=== PATIENT | female | born 1965 | race Caucasian/White ===

== ENCOUNTER 2017-01-05 16:02 | Emergency (ER) | payer OTHER ==
[2017-01-05 16:26] VITALS: PULSE 94; O2SAT 99
[2017-01-05] MEDS ORDERED: TYLENOL 325 MG PO ONE (16:28)
--- NOTE | 2017-01-05 16:34 | ERPHSYRPT ---
- History of Present Illness Time Seen by Provider: 01/05/17 16:25 Source: patient Patient Subjective Stated Complaint: pt states on 01/03/17 she was moving a bag of salt at work and injured her left elbow. pt states pain is worse upon extension of her left elbow. Triage Nursing Assessment: pt pink, warm, dry. no deformity noted to left elbow. no swelling noted. radial pulse strong. Physician History: CC: left elbow injury Hx: 51 y/o diabetic works at [employer] and injured left elbow Wed (2 days ago) while lifting a box of salt bags. She felt a pop. Pain not better with motrin. No other injury. No N/T/W. Quality: constant Extremities Pain Location: elbow: left Allergies/Adverse Reactions: Iodinated Contrast- Oral and IV Dye [Iodinated Contrast Media - IV Dye] Allergy (Verified 01/05/17 16:26) Penicillins Allergy (Verified 01/05/17 16:26) Home Medications: Armodafinil [Nuvigil] 200 mg PO DAILY 01/05/17 [History] Atenolol 50 mg PO DAILY PRN PRN 01/05/17 [History] Metformin HCl 1,000 mg PO BID 01/05/17 [History] Hx Tetanus, Diphtheria Vaccination/Date Given: Yes (up to date) Hx Influenza Vaccination/Date Given: No Hx Pneumococcal Vaccination/Date Given: No Immunizations Up to Date: Yes - Review of Systems Constitutional: No Symptoms Musculoskeletal: Injury, Joint Pain (left elbow), No Back Pain, No Neck Pain Neurological: No Focal Weakness, No Parasthesia - Past Medical History Pertinent Past Medical History: Yes Neurological History: Migraines Cardiac History: Hypertension Endocrine Medical History: Diabetes Type II Musculoskeletal History: Other GI Medical History: Diverticulosis Other Medical History: narcalepsy - Past Surgical History Past Surgical History: Yes Gastrointestinal: Appendectomy, Cholecystectomy Female Surgical History: Section, Hysterectomy - Social History Smoking Status: Never smoker Exposure to second hand smoke: Yes Drug Use: none Patient Lives Alone: No - Nursing Vital Signs Nursing Vital Signs: Initial Vital Signs Temperature 98.1 F 01/05/17 16:21 Pulse Rate 94 H 01/05/17 16:21 Respiratory Rate 18 01/05/17 16:21 Blood Pressure 144/95 01/05/17 16:21 O2 Sat by Pulse Oximetry 99 01/05/17 16:21 Pain Scale Pain Intensity 0 - Physical Exam General Appearance: alert Eyes, Ears, Nose, Throat Exam: moist mucous membranes Neck Exam: non-tender, supple Cardiovascular/Respiratory Exam: regular rate/rhythm Neuro/Tendon Exam: normal sensation, normal motor functions Mental Status Exam: alert, oriented x 3, cooperative Skin Exam: warm, dry, No rash SpO2 Interpretation: normal SpO2: 99 Oxygen Delivery: Room Air Comments: Left elbow some tender at the radial head area and with suppination. No swelling. No wrist, hand or shoulder tenderness. Neurovascular intact. - Course Nursing assessment & vital signs reviewed: Yes - Radiology Exams left elbow X-ray Interpretation: Reviewed by me, No Fracture Ordered Tests: Active Orders 24 hr Category Date Time Status Silvestre Bandage Application [facility] STAT Care 01/05/17 16:28 Active Cold Application STAT Care 01/05/17 16:28 Active Sling Application STAT Care 01/05/17 16:28 Active ELBOW (MINIMUM 3 VIEWS) Stat Exams 01/05/17 16:28 Taken Medication Summary Discontinued Medications Generic Name Dose Route Start Last Admin Trade Name Mark PRN Reason Stop Dose Admin Acetaminophen 650 mg 01/05/17 16:28 01/05/17 16:48 Tylenol 325 Mg PO 01/05/17 16:29 650 mg STAT ONE Administration Acetaminophen Confirm 01/05/17 16:47 Tylenol 325 Mg Administered 01/05/17 16:48 Dose 650 mg .ROUTE .STK-MED ONE - Progress Progress Note: 01/05/17 17:05 Prelim xray appears neg. Will use silvestre, sling, codiene, and follow up. She will have light duty with no use of left arm until follow up Sunday. Counseled pt/family regarding: diagnosis, need for follow-up, rad results - Departure Time of Disposition: 17:06 Departure Disposition: Home Clinical Impression: Sprain of left elbow Qualifiers: Encounter type: initial encounter Qualified Code(s): S53.402A - Unspecified sprain of left elbow, initial encounter Condition: Stable Critical Care Time: No Referrals: MARIA T FORD [Primary Care Provider] - Instructions: Elbow Sprain Additional Instructions: SPRAINS/STRAINS/CONTUSIONS 1. Rest the affected area as much as possible for the next few days. 2. Apply ice to the affected area for 20-30 minutes at a time, several times a day. 3. If you receive an elastic wrap, wear it only while awake for comfort and support. Re-wrap the elastic wrap if it feels too tight or too loose. 4. If swelling is present, elevate the affected part above the level of the heart for at least 2 to 3 days. 5. Use splints, slings, or crutches as instructed. 6. Watch for severe swelling, coldness, numbness, and discoloration of the fingers and toes. See your family physician or return to the emergency department if any of these are noted. Rx codiene if needed. Silvestre, cold pack, sling. [facility]. Light duty work with no use of left arm. Prescriptions: Codeine Phosphate/APAP #3 [Tylenol #3 Tablet] 1 tab PO Q4-6HPRN PRN #10 tablet PRN Reason: Pain
[2017-01-05] MEDS ORDERED: TYLENOL 325 MG ONE (16:47)
[2017-01-05 17:08] VITALS: BP 123/66
--- NOTE | 2017-01-05 17:12 | XRAY ---
Indication: Pain. Comparison: None 3 views of the left elbow obtained. No bony, articular, or soft tissue abnormalities.
== END 2017-01-05 17:23 | disposition home or self-care (01) ==
LOC: ED 16:02
DX: S53.402A Unspecified sprain of left elbow, initial encounter (principal); X50.0XXA Overexertion from strenuous movement or load, initial encounter; Y92.512 Supermarket, store or market as the place of occurrence of the external cause
CPT/HCPCS: 73080; 99283; A9270-GY

== ENCOUNTER 2017-02-24 12:25 | Emergency (ER) | payer OTHER ==
[2017-02-24 12:45] VITALS: O2SAT 99
--- NOTE | 2017-02-24 13:09 | ERPHSYRPT ---
- History of Present Illness Time Seen by Provider: 02/24/17 13:02 Source: patient Patient Subjective Stated Complaint: pt was standing up from her desk at work today approx 1130 when she tripped over a heavy box, pt reports she jammed her right arm into the wall as she fell. pt reports landing on knees. states " my arm went completely backwards" pt denies striking her head, denies any LOC. Triage Nursing Assessment: pt is aox3, pupils perrl, resps easy and non labored , radial pulses strong and equal, cap refill < 3 secs, pt rom limited to right upper extrem, cannot raise above shoulder level. sensation to digits intact. pt reports pain with movement of the right upper extrem at the bicep that radiates to the shoulder. minimal pain at rest. Physician History: CC: right arm injury Hx: 52 y/o patient works at [employer] in [employer]. She was at her office and tripped on a box and fell against a wall hurting her right upper arm and shoulder. No neck or back pain. No N/T/W. No other injuries. Work sent her here for evaluation. Pain is moderate and worse with movement. Occurred: just prior to arrival (11:30 AM ) Allergies/Adverse Reactions: Iodinated Contrast- Oral and IV Dye [Iodinated Contrast Media - IV Dye] Allergy (Verified 02/24/17 12:45) Penicillins Allergy (Verified 02/24/17 12:45) Home Medications: Armodafinil [Nuvigil] 200 mg PO DAILY 01/05/17 [History] Atenolol 50 mg PO DAILY PRN PRN 01/05/17 [History] Metformin HCl 1,000 mg PO BID 01/05/17 [History] Hx Tetanus, Diphtheria Vaccination/Date Given: Yes Hx Influenza Vaccination/Date Given: No Hx Pneumococcal Vaccination/Date Given: No Immunizations Up to Date: Yes - Review of Systems Constitutional: No Symptoms Respiratory: No Dyspnea Musculoskeletal: Fall, Injury (right shoulder and upper arm), No Back Pain, No Neck Pain, No Deformity Neurological: No Focal Weakness, No Headache, No Parasthesia - Past Medical History Pertinent Past Medical History: Yes Neurological History: Migraines Cardiac History: Hypertension Endocrine Medical History: Diabetes Type II Musculoskeletal History: Other GI Medical History: Diverticulosis Other Medical History: narcolepsy - Past Surgical History Past Surgical History: Yes Gastrointestinal: Appendectomy, Cholecystectomy Female Surgical History: Section, Hysterectomy - Social History Smoking Status: Never smoker Exposure to second hand smoke: Yes Drug Use: none Patient Lives Alone: No - Female History Hx Last Menstrual Period: hyst Hx Now: No - Nursing Vital Signs Nursing Vital Signs: Initial Vital Signs Temperature 98.5 F 02/24/17 12:35 Pulse Rate 99 H 02/24/17 12:35 Respiratory Rate 20 02/24/17 12:35 Blood Pressure 131/74 02/24/17 12:35 O2 Sat by Pulse Oximetry 99 02/24/17 12:35 Pain Scale Pain Intensity 4 - Physical Exam General Appearance: alert, obese, other (pleasant lady) Eyes, Ears, Nose, Throat Exam: moist mucous membranes Neck Exam: normal inspection, non-tender, supple, No tenderness midline Cardiovascular/Respiratory Exam: chest non-tender, normal breath sounds, regular rate/rhythm Back Exam: normal inspection, No vertebral tenderness Neuro/Tendon Exam: normal sensation, normal motor functions Mental Status Exam: alert, oriented x 3, cooperative Skin Exam: warm, No rash SpO2 Interpretation: normal SpO2: 99 Oxygen Delivery: Room Air Comments: right humerus tenderness, able to touch right hand to left shoulder, pain with ROM, no wrist or hand tenderness. Skin intact. - Course Nursing assessment & vital signs reviewed: Yes Ordered Tests: Active Orders 24 hr Category Date Time Status Cold Application STAT Care 02/24/17 13:05 Active Sling Application STAT Care 02/24/17 13:05 Active HUMERUS Stat Exams 02/24/17 13:05 Taken SHOULDER Stat Exams 02/24/17 13:05 Taken - Progress Progress Note: 02/24/17 13:43 Pt declines meds here. Sling applied. She has an avulsion fracture proximal humerus. She will follow up with workers comp family or orthopedics doctor. Instr given. Rx norco. Counseled pt/family regarding: diagnosis, need for follow-up, rad results - Departure Time of Disposition: 13:44 Departure Disposition: Home Clinical Impression: avulsion fracture humerus proximal right, Sprain of right shoulder Condition: Stable Critical Care Time: No Referrals: MARIA T FORD [Primary Care Provider] - Instructions: Shoulder Sprain, Avulsion Fracture, Use a Sling Additional Instructions: SPRAINS/STRAINS/CONTUSIONS 1. Rest the affected area as much as possible for the next few days. 2. Apply ice to the affected area for 20-30 minutes at a time, several times a day. 3. If you receive an elastic wrap, wear it only while awake for comfort and support. Re-wrap the elastic wrap if it feels too tight or too loose. 4. If swelling is present, elevate the affected part above the level of the heart for at least 2 to 3 days. 5. Use splints, slings, or crutches as instructed. 6. Watch for severe swelling, coldness, numbness, and discoloration of the fingers and toes. See your family physician or return to the emergency department if any of these are noted. Right arm sling. Ice packs off and on. Off work today and then light duty work with no use of right arm. Follow up with workers comp doctor/[facility] Sunday. Rx norco- no driving or operating machinery. Prescriptions: Hydrocodone Bit/Acetaminophen [[place] 5-325 Tablet] 1 each PO Q6H PRN PRN #15 tablet MDD 4 PRN Reason: Pain
[2017-02-24 14:20] VITALS: BP 145/62; PULSE 89
--- NOTE | 2017-02-24 23:00 | XRAY ---
Indication: Pain following fall. Comparison: None 2 views of the right humerus interpreted with right shoulder exam of the same day negative for acute fracture, dislocation, or suspicious bony lesions. Incidental benign-appearing subcentimeter well-circumscribed ossification in the axilla.
--- NOTE | 2017-02-24 23:00 | XRAY ---
Indication: Pain following fall. Comparison: None 3 views of the right shoulder demonstrates benign-appearing subcentimeter well-circumscribed ossification in the axilla. No acute fracture, dislocation, or suspicious bony lesions.
== END 2017-02-24 14:20 | disposition home or self-care (01) ==
LOC: ED 12:25
DX: S42.201A Unspecified fracture of upper end of right humerus, initial encounter for closed fracture (principal); S43.401A Unspecified sprain of right shoulder joint, initial encounter; W22.8XXA Striking against or struck by other objects, initial encounter; Y99.0 Civilian activity done for income or pay
CPT/HCPCS: 73030; 73060; 99283

== ENCOUNTER 2020-04-05 10:35 | Observation (INO) | payer BC ==
[2020-04-05 11:01] LABS: Hematocrit 42.3 % (35-47); Hemoglobin 13.5 gm/dl (12.0-16.0); Mean Cell Volume 88.5 fl (78-100); Mean Corpuscular Hemoglobin 28.2 pg (26-32); Mean Corpuscular Hgb Concent. 31.9 g/dl (32-36); Mean Platelet Volume 10.4 fl (7.5-11.0); Platelet Count 381 K/mm3 (150-450); Red Blood Count 4.78 M/mm3 (4.1-5.4); Red Cell Distribution Width 12.6 % (11.5-14.0); White Blood Count 10.4 K/mm3 (4.0-10.5)
--- NOTE | 2020-04-05 11:05 | XRAY ---
Indication: Chest pain. Comparison: March 29, 2018. Portable chest less inflated and remains clear. Heart is not enlarged. Bony thorax intact. Impression: Continued nonacute chest.
[2020-04-05 11:07] LABS: PROTIME 11.3 SECONDS (9.95-12.35)
[2020-04-05] MEDS ORDERED: Nitrostat 0.4 MG (ED) SL ONE ×4 (11:09→11:20)
[2020-04-05] MEDS ORDERED: BABY ASPIRIN 81 MG CHEW PO ONE (11:09)
[2020-04-05 11:10] LABS: PTT 31.5 SECONDS (25.3-37.0)
[2020-04-05] MEDS ORDERED: BABY ASPIRIN 81 MG CHEW ONE (11:10)
[2020-04-05 11:19] LABS: ALKALINE PHOSPHATASE 157 U/L (38-126); ANION GAP 13.3 MEQ/L (5-15); BLOOD UREA NITROGEN 20 mg/dL (7-17); CHLORIDE 101 mmol/L (98-107); Calcium 10.2 mg/dL (8.4-10.2); Carbon Dioxide 25 mmol/L (22-30); Creatinine 1 0.69 mg/dL (0.52-1.04); EST GLOMERULAR FILTRATION RATE > 60.0 ML/MIN; Glucose 262 mg/dL (74-106); NT PRO BNP 186 pg/mL (0-900); Potassium 4.4 mmol/L (3.5-5.1); SGOT/AST 32 U/L (14-36); SGPT/ALT 24 U/L (0-35); SODIUM 136 mmol/L (137-145); Total Protein 7.1 g/dL (6.3-8.2)
--- NOTE | 2020-04-05 11:26 | ERPHSYRPT ---
- History of Present Illness Historian: patient Patient Subjective Stated Complaint: Chest pain Triage Nursing Assessment: Patient ambulated back to ED and transferred self to bed. Patient A+O X3. Patient's skin pink, warm and dry. Patient complains of chest pain on and off since Sunday. Patien went to follow up appointment today and was still having chest pain. Patient complains of constant aching sharp pain in the chest that goes down right arm 5/10. Lungs clear a/p martinez. No edema noted. Heart tones audible. Physician History: 55 yo wf w mid-sternal chest pain w radiation to back and RUE x2days. Pain is 6/10 but has been up to 09/28. It is described as pressure and nothing makes better or worse. She has had dyspnea/N/diaphoresis wo vomiting. Pt was admitted at [facility] from 03/31 to 04/03 at [facility] for chest pain/CVA ro. She denies cardiac Hx but has HTN/DM/Hyperlipidemia/FH CAD. She does not smoke. Timing/Duration: other (2 days) Activities at Onset: rest Quality: pressure Location: substernal Chest Pain Radiation: arm, back Severity of Pain-Max: moderate Severity of Pain-Current: moderate Modifying Factors: Improves With: nothing Associated Symptoms: nausea, shortness of breath, diaphoresis, No vomiting Prior Chest Pain/Cardiac Workup: recent hospitalization Nitro Today/Relief: no nitro taken today Aspirin Treatment Today: no aspirin today Allergies/Adverse Reactions: Iodinated Contrast Media [Iodinated Contrast Media - IV Dye] Allergy (Verified 02/24/17 12:45) Penicillins Allergy (Verified 02/24/17 12:45) topiramate [From Topamax] Allergy (Verified 04/05/20 10:40) Hives, N/V Home Medications: Metformin HCl 1,000 mg PO BID 01/05/17 [History] Acetaminophen 325 mg [Tylenol 325 mg] 650 mg PO Q4H PRN PRN 04/05/20 [History] Albuterol Sulfate [Proair Hfa] 2 puff IH Q4HPRN PRN 04/05/20 [History] Allopurinol 300 mg [Zyloprim 300 mg] 300 mg PO DAILY 04/05/20 [History] Amitriptyline HCl 10 mg [Elavil 10 mg] 10 mg PO HS 04/05/20 [History] Ergocalciferol (Vitamin D2) [Vitamin D2] 50,000 units PO UD 04/05/20 [History] Insulin Detemir [Levemir] 18 units SQ BID 04/05/20 [History] Insulin Lispro [Humalog] 8 unit SQ BREAKFAST 04/05/20 [History] Insulin Lispro [Humalog] 12 unit SQ DINNER 04/05/20 [History] Insulin Lispro [Humalog] 12 unit SQ LUNCH 04/05/20 [History] Insulin Lispro [Humalog] 100 unit SQ UD 04/05/20 [History] Magnesium Oxide 400 mg [Mag-Ox 400] 400 mg PO DAILY 04/05/20 [History] Modafinil [Provigil] 400 mg PO QAM 04/05/20 [History] Pravastatin Sodium 40 mg PO DAILY 04/05/20 [History] Pregabalin 150 mg PO BID 04/05/20 [History] Propranolol HCl 10 mg PO TID 04/05/20 [History] Ropinirole 2Mg [Requip 2Mg Tab] 4 mg PO HS 04/05/20 [History] SUMAtriptan succinate [Imitrex 50 mg] 100 mg PO UD 04/05/20 [History] Scopolamine 1.5 mg Patch [Transderm Scop 1.5MG Patch] 1 patch TOP UD 04/05/20 [History] Hx Tetanus, Diphtheria Vaccination/Date Given: Yes Hx Influenza Vaccination/Date Given: No Hx Pneumococcal Vaccination/Date Given: No Immunizations Up to Date: Yes Travel Risk - International Travel Have you traveled outside of the country in past 3 weeks: No - Coronavirus Screening Are you exhibiting any of the following symptoms?: No Close contact with a COVID-19 positive Pt in past 14-21 Days: No - Review of Systems Constitutional: No Symptoms Eyes: No Symptoms Ears, Nose, & Throat: No Symptoms Respiratory: No Symptoms, Dyspnea Cardiac: Chest Pain Abdominal/Gastrointestinal: No Symptoms, Nausea Genitourinary Symptoms: No Symptoms Musculoskeletal: No Symptoms Skin: No Symptoms Neurological: No Symptoms Psychological: No Symptoms Endocrine: No Symptoms Hematologic/Lymphatic: No Symptoms Immunological/Allergic: No Symptoms - Past Medical History Pertinent Past Medical History: Yes Neurological History: Migraines Cardiac History: Hypertension Respiratory History: No Pertinent History Endocrine Medical History: Diabetes Type II Musculoskeletal History: Other GI Medical History: Diverticulosis Other Medical History: HX HTN, MIGRAINES, L KNEE PN, L LATERAL EPICONDYLITIS - Past Surgical History Past Surgical History: Yes Gastrointestinal: Appendectomy, Cholecystectomy Female Surgical History: Section, Hysterectomy - Social History Smoking Status: Never smoker Exposure to second hand smoke: Yes Drug Use: none Patient Lives Alone: No - Female History Hx Last Menstrual Period: hysterctomy Hx Now: No - Nursing Vital Signs Nursing Vital Signs: Initial Vital Signs Temperature 97.2 F 04/05/20 10:45 Pulse Rate 93 H 04/05/20 10:45 Respiratory Rate 14 04/05/20 10:45 Blood Pressure 157/90 04/05/20 10:45 O2 Sat by Pulse Oximetry 100 04/05/20 10:45 Pain Scale Pain Intensity 4 - Physical Exam General Appearance: no apparent distress Eye Exam: PERRL/EOMI, eyes nml inspection Ears, Nose, Throat Exam: normal ENT inspection, TMs normal, pharynx normal, moist mucous membranes Neck Exam: normal inspection, non-tender, supple, full range of motion, No meningismus, No mass, No Brudzinski, No Kernig's Respiratory Exam: normal breath sounds, lungs clear, airway intact, No respiratory distress Cardiovascular Exam: regular rate/rhythm, normal heart sounds, normal peripheral pulses, No murmur Gastrointestinal/Abdomen Exam: soft, normal bowel sounds, No tenderness Pelvic Exam: not done Back Exam: normal inspection, normal range of motion Extremity Exam: normal inspection, normal range of motion Neurologic Exam: alert, oriented x 3, cooperative, 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, normal mood/affect, sensation nml, No motor deficits, No sensory deficit Skin Exam: normal color, warm, dry Lymphatic Exam: No adenopathy SpO2 Interpretation: normal SpO2: 98 O2 Delivery: Room Air - Course Nursing assessment & vital signs reviewed: Yes EKG Interpreted by Me: RATE (NSR/R82/Normal QT-QTc/Qwave 3-AVF/Poor R wave progression) - Radiology Exams Chest X-ray Interpretation: Discussed w/ radiologist (Nothing acute) Ordered Tests: Active Orders 24 hr Category Date Time Status EKG-ER Only STAT Care 04/05/20 10:36 Completed IV Insertion STAT Care 04/05/20 11:15 Completed Heart-Healthy Diet Diet 04/05/20 Dinner Active CHEST 1 VIEW (PORTABLE) Stat Exams 04/05/20 10:37 Completed CBC W DIFF Stat Lab 04/05/20 10:36 Completed CMP Stat Lab 04/05/20 10:36 Completed D-DIMER QUANTITATIVE Stat Lab 04/05/20 10:45 Completed LIPID PROFILE AM.LAB Lab 04/06/20 04:00 Ordered Manual Differential NC Stat Lab 04/05/20 10:36 Completed NT PRO BNP Stat Lab 04/05/20 10:36 Completed PROTIME WITH INR Stat Lab 04/05/20 10:36 Completed PTT Stat Lab 04/05/20 10:36 Completed TROPONIN Q3H Lab 04/05/20 10:45 Completed TROPONIN Q3H Lab 04/05/20 12:50 Completed TROPONIN Q3H Lab 04/05/20 16:45 Ordered TROPONIN Q3H Lab 04/05/20 19:45 Ordered TROPONIN Q3H Lab 04/05/20 22:45 Ordered Transfer Order Routine Transfer 04/05/20 Completed Medication Summary Generic Name Dose Route Start Last Admin Trade Name Freq PRN Reason Stop Dose Admin Acetaminophen 650 mg 04/05/20 13:46 Tylenol 325 Mg PO 05/05/20 13:45 Q4H PRN PRN PAIN AND/OR FEVER Al Hydrox/Mg Hydrox/Simethicone 30 ml 04/05/20 13:46 Maalox Es 30 Ml Unit Dose PO 05/05/20 13:45 Q4H PRN PRN INDIGESTION Aspirin 325 mg 04/06/20 10:00 Ecotrin 325 Mg PO 05/06/20 09:59 DAILY CHRISTINA Enoxaparin Sodium 40 mg 04/05/20 15:00 Enoxaparin Sodium SQ 05/05/20 14:59 DAILY CHRISTINA Insulin Human Lispro 0 unit 04/05/20 13:46 Humalog SQ 05/05/20 13:45 UD PRN HYPERGLYCEMIA Magnesium Hydroxide 30 - 60 ml 04/05/20 13:46 Milk Of Magnesia 30 Ml PO 05/05/20 13:45 QDP PRN CONSTIPATION Morphine Sulfate 2 mg 04/05/20 13:46 Morphine Sulfate 2 Mg Inj IV 04/10/20 13:45 .Q15MIN PRN PRN CHEST PAIN Nitroglycerin 1 gm 04/05/20 14:00 Nitro-Bid 2% Ud Packets TOP 05/05/20 13:59 Q8HT CHRISTINA Ondansetron HCl 4 mg 04/05/20 13:46 Zofran 4 Mg/2 Ml Vial IV 05/05/20 13:45 Q4H PRN PRN NAUSEA/VOMITING Senna/Docusate Sodium 2 udtab 04/05/20 13:46 Senokot-S Tablet PO 05/05/20 13:45 BID PRN PRN CONSTIPATION Discontinued Medications Generic Name Dose Route Start Last Admin Trade Name Freq PRN Reason Stop Dose Admin Aspirin 324 mg 04/05/20 11:09 04/05/20 11:12 Baby Aspirin 81 Mg Chew PO 04/05/20 11:10 324 mg STAT ONE Administration Aspirin Confirm 04/05/20 11:10 Baby Aspirin 81 Mg Chew Administered 04/05/20 11:11 Dose 324 mg .ROUTE .STK-MED ONE Ketorolac Tromethamine 30 mg 04/05/20 11:36 04/05/20 11:40 Toradol 30 Mg Injection IV 04/05/20 11:37 30 mg STAT ONE Administration Ketorolac Tromethamine Confirm 04/05/20 11:39 Toradol 30 Mg Injection Administered 04/05/20 11:40 Dose 30 mg .ROUTE .STK-MED ONE Morphine Sulfate 4 mg 04/05/20 13:05 04/05/20 13:07 Morphine Sulfate 2 Mg Inj IV 04/05/20 13:06 4 mg STAT ONE Administration Morphine Sulfate Confirm 04/05/20 13:06 Morphine Sulfate 4 Mg Inj Administered 04/05/20 13:07 Dose 4 mg .ROUTE .STK-MED ONE Morphine Sulfate 4 mg 04/05/20 13:51 04/05/20 13:54 Morphine Sulfate 4 Mg Inj IV 04/05/20 13:52 4 mg STAT ONE Administration Morphine Sulfate Confirm 04/05/20 13:52 Morphine Sulfate 4 Mg Inj Administered 04/05/20 13:53 Dose 4 mg .ROUTE .STK-MED ONE Nitroglycerin 0.4 mg 04/05/20 11:09 04/05/20 11:12 Nitrostat 0.4 Mg (Ed) SL 04/05/20 11:10 0.4 mg STAT ONE Administration Nitroglycerin Confirm 04/05/20 11:11 Nitrostat 0.4 Mg (Ed) Administered 04/05/20 11:12 Dose 0.4 mg SL .STK-MED ONE Nitroglycerin 0.4 mg 04/05/20 11:19 04/05/20 11:21 Nitrostat 0.4 Mg (Ed) SL 04/05/20 11:20 0.4 mg STAT ONE Administration Nitroglycerin Confirm 04/05/20 11:20 Nitrostat 0.4 Mg (Ed) Administered 04/05/20 11:21 Dose 0.4 mg SL .STK-MED ONE Ondansetron HCl 4 mg 04/05/20 13:06 04/05/20 13:07 Zofran 4 Mg/2 Ml Vial IV 04/05/20 13:07 4 mg STAT ONE Administration Ondansetron HCl Confirm 04/05/20 13:06 Zofran 4 Mg/2 Ml Vial Administered 04/05/20 13:07 Dose 4 mg .ROUTE .STK-MED ONE Lab/Rad Data: Laboratory Result Diagrams 04/05/20 10:36 04/05/20 10:36 Laboratory Results 04/05/20 04/05/20 04/05/20 Range/Units 12:50 10:45 10:45 WBC (4.0-10.5) K/mm3 RBC (4.1-5.4) M/mm3 Hgb (12.0-16.0) gm/dl Hct (35-47) % MCV (78-100) fl MCH (26-32) pg MCHC (32-36) g/dl RDW (11.5-14.0) % Plt Count (150-450) K/mm3 MPV (7.5-11.0) fl Segmented Neutrophils (36.0-66.0) % Lymphocytes (Manual) (24-44) % Monocytes (Manual) (0.0-12.0) % Eosinophils (Manual) (0.00-3.0) % Platelet Estimate (NORMAL) RBC Morphology PT (9.95-12.35) SECONDS INR (0.8-3.0) APTT (25.3-37.0) SECONDS D-Dimer 456 (215-500) ng/mL Sodium (137-145) mmol/L Potassium (3.5-5.1) mmol/L Chloride (98-107) mmol/L Carbon Dioxide (22-30) mmol/L Anion Gap (5-15) MEQ/L BUN (7-17) mg/dL Creatinine (0.52-1.04) mg/dL Estimated GFR ML/MIN Glucose (74-106) mg/dL Calcium (8.4-10.2) mg/dL Total Bilirubin (0.2-1.3) mg/dL AST (14-36) U/L ALT (0-35) U/L Alkaline Phosphatase (38-126) U/L Troponin I < 0.012 < 0.012 (0.000-0.034) ng/mL NT-Pro-B Natriuret Pep (0-900) pg/mL Serum Total Protein (6.3-8.2) g/dL Albumin (3.5-5.0) g/dL 04/05/20 04/05/20 04/05/20 Range/Units 10:36 10:36 10:36 WBC 10.4 (4.0-10.5) K/mm3 RBC 4.78 (4.1-5.4) M/mm3 Hgb 13.5 (12.0-16.0) gm/dl Hct 42.3 (35-47) % MCV 88.5 (78-100) fl MCH 28.2 (26-32) pg MCHC 31.9 L (32-36) g/dl RDW 12.6 (11.5-14.0) % Plt Count 381 (150-450) K/mm3 MPV 10.4 (7.5-11.0) fl Segmented Neutrophils 64 (36.0-66.0) % Lymphocytes (Manual) 29 (24-44) % Monocytes (Manual) 5 (0.0-12.0) % Eosinophils (Manual) 2 (0.00-3.0) % Platelet Estimate NORMAL (NORMAL) RBC Morphology NORMAL PT 11.3 (9.95-12.35) SECONDS INR 1.00 (0.8-3.0) APTT 31.5 (25.3-37.0) SECONDS D-Dimer (215-500) ng/mL Sodium 136 L (137-145) mmol/L Potassium 4.4 (3.5-5.1) mmol/L Chloride 101 (98-107) mmol/L Carbon Dioxide 25 (22-30) mmol/L Anion Gap 13.3 (5-15) MEQ/L BUN 20 H (7-17) mg/dL Creatinine 0.69 (0.52-1.04) mg/dL Estimated GFR > 60.0 ML/MIN Glucose 262 H (74-106) mg/dL Calcium 10.2 (8.4-10.2) mg/dL Total Bilirubin 0.40 (0.2-1.3) mg/dL AST 32 (14-36) U/L ALT 24 (0-35) U/L Alkaline Phosphatase 157 H (38-126) U/L Troponin I (0.000-0.034) ng/mL NT-Pro-B Natriuret Pep 186 (0-900) pg/mL Serum Total Protein 7.1 (6.3-8.2) g/dL Albumin 4.0 (3.5-5.0) g/dL - Progress Progress: improved Progress Note: 04/05/20 13:02 325 ASA chewable SL NTG x2 w mild improvement in pain 30mg IV Toradol w pain decreased to a 4 04/05/20 13:[address] Kapoor Discussed with : Delilah Counseled pt/family regarding: lab results, diagnosis, rad results - Departure Departure Disposition: Observation Clinical Impression: Chest pain Condition: Stable Critical Care Time: No
[2020-04-05] MEDS ORDERED: TORAdol 30 mg Injection IV ONE (11:36)
[2020-04-05 11:38] LABS: Eosinophil 2 % (0.00-3.0); Lymphocytes 29 % (24-44); Monocyte 5 % (0.0-12.0); Neutrophils 64 % (36.0-66.0); Platelet Estimate NORMAL (NORMAL); Total Cells Counted 100
[2020-04-05] MEDS ORDERED: TORAdol 30 mg Injection ONE (11:39)
[2020-04-05] MEDS ORDERED: MORPHINE SULFATE 2 MG INJ IV ONE (13:05)
[2020-04-05] MEDS ORDERED: MORPHINE SULFATE 4 MG INJ ONE ×2 (13:06→13:52)
[2020-04-05] MEDS ORDERED: Zofran 4 MG/2 ML VIAL ONE (13:06)
[2020-04-05] MEDS ORDERED: Zofran 4 MG/2 ML VIAL IV ONE (13:06)
[2020-04-05] MEDS ORDERED: MILK OF MAGNESIA 30 ML PO PRN (13:46)
[2020-04-05] MEDS ORDERED: MORPHINE SULFATE 2 MG INJ IV PRN (13:46)
[2020-04-05] MEDS ORDERED: MAALOX ES 30 ML UNIT DOSE PO PRN (13:46)
[2020-04-05] MEDS ORDERED: Zofran 4 MG/2 ML VIAL IV PRN (13:46)
[2020-04-05] MEDS ORDERED: TYLENOL 325 MG PO PRN ×2 (13:46→18:18)
[2020-04-05] MEDS ORDERED: Senokot-S Tablet PO PRN (13:46)
[2020-04-05] MEDS ORDERED: MORPHINE SULFATE 4 MG INJ IV ONE (13:51)
[2020-04-05] MEDS: NITRO-BID 2% UD PACKETS TOP SCH ×2 (17:16→22:09)
[2020-04-05] MEDS: ENOXAPARIN SODIUM SQ SCH (17:16)
[2020-04-05] MEDS: HUMALOG SQ PRN ×2 (18:31→22:10)
[2020-04-05] MEDS ORDERED: LYRICA 150MG ONE (21:31)
[2020-04-05] MEDS ORDERED: Lantus Insulin SQ SCH (22:00)
[2020-04-05] MEDS ORDERED: ELAVIL 10 MG PO SCH (22:00)
[2020-04-05] MEDS ORDERED: Lyrica 50MG PO SCH (22:00)
[2020-04-05] MEDS: Inderal 20 MG PO SCH (22:08)
[2020-04-06 00:26] VITALS: O2SAT 93
[2020-04-06 05:52] LABS: Risk Ratio 5.6
[2020-04-06] MEDS: NITRO-BID 2% UD PACKETS TOP SCH (05:55)
[2020-04-06] MEDS ORDERED: Ventolin Hfa MDI IH PRN (06:47)
[2020-04-06] MEDS ORDERED: VENTOLIN COMMON CANISTER IH PRN (06:53)
[2020-04-06] MEDS ORDERED: IMITREX PO PRN (06:54)
[2020-04-06] MEDS ORDERED: SUMATRIPTAN SUCCINATE 100 MG PO SCH (07:00)
[2020-04-06] MEDS ORDERED: ERGOCALCIFEROL 50000 UNIT PO SCH (07:00)
[2020-04-06 07:34] VITALS: BP 108/53; PULSE 60
[2020-04-06] MEDS ORDERED: Lantus Insulin SQ SCH (08:00)
[2020-04-06] MEDS ORDERED: Glucophage 500 MG PO SCH (08:00)
[2020-04-06] MEDS ORDERED: Glucophage XR 500 MG PO SCH (08:00)
[2020-04-06] MEDS ORDERED: HUMALOG SQ SCH ×3 (08:00→17:00)
[2020-04-06] MEDS: HUMALOG SQ PRN (08:28)
[2020-04-06] MEDS ORDERED: MAG-OX 400 PO SCH (10:00)
[2020-04-06] MEDS ORDERED: Transderm Scop 1.5MG Patch TOP SCH (10:00)
[2020-04-06] MEDS ORDERED: ZYLOPRIM 300 MG PO SCH (10:00)
[2020-04-06] MEDS ORDERED: Provigil 100MG Tablet PO SCH (10:00)
[2020-04-06] MEDS ORDERED: LYRICA 150MG PO SCH (10:00)
[2020-04-06] MEDS ORDERED: MODAFINIL 400 MG PO SCH (10:00)
[2020-04-06] MEDS ORDERED: ZOCOR 20MG PO SCH (10:00)
[2020-04-06] MEDS ORDERED: Ecotrin 325 MG PO SCH (10:00)
[2020-04-06] MEDS ORDERED: NON-FORMULARY ITEM (Pravastatin Sodium [Pravastatin Sodium] 40 MG) PO SCH (10:00)
[2020-04-06] MEDS: ENOXAPARIN SODIUM SQ SCH (10:20)
[2020-04-06] MEDS: Inderal 20 MG PO SCH (10:21)
[2020-04-06] MEDS ORDERED: REQUIP 2MG TAB PO SCH (22:00)
--- NOTE | 2020-04-07 10:57 | SSS ---
DISCHARGE DIAGNOSES: 1) CHEST PAIN. 2) DIABETES MELLITUS TYPE II OUT OF CONTROL. HOSPITAL COURSE: The patient is a 55 year-old white female who had a recent stay at [facility] lasting three days. At that time she was having headache and elevated blood pressure. She was seen by neurology up there but not by cardiology. She was also having chest pains at that time. She said the chest pain as being mostly substernal radiating to the back and to the right arm. She reports that there is some change with motion but has no tenderness to the chest wall. PAST MEDICAL/SURGICAL HISTORY: Otherwise significant for diabetes mellitus type II which is out of control with an A1C recently up to 13. She has a history otherwise of migraines, hypertension, knee pain. She previously had appendectomy, cholecystectomy, hysterectomy, section. HOME MEDICATIONS: Modafinil recently changed at [facility] due to pharmacy change for her medicine to keep her awake in the morning for her narcolepsy. She takes Pravastatin 40 mg a day, Lyrica 150 mg b.i.d., propranolol was also recently added at 10 mg t.i.d., Requip 4 mg at night, scopolamine patch which she reports has been helpful and she is using it behind her ear for her dizziness. Imitrex 50 mg which she takes up to four times a day also for her migraine headaches. She takes Tylenol PRN, Albuterol, allopurinol 300 mg for history of gout which she reports she has not had an episode for some time, amitriptyline also new at 10 mg at night, vitamin D 50,000 units twice a week, Levemir 18 units in the morning and evening, Humalog 8 units with breakfast and lunch 12 units and dinner also 12 units. She also uses sliding scale coverage at home in addition to this. Magnesium at 400 mg daily, Metformin 1,000 mg b.i.d. ALLERGIES: PENICILLINS. IODINATED CONTRAST MEDIA. TOPAMAX. PHYSICAL EXAMINATION: The patient's initial vital signs showed temperature 97.2F, pulse 93, respiratory rate 14, blood pressure 157/90. O2 saturation 100%. HEENT: Normocephalic, atraumatic. Pupils equal round reactive to light. Extraocular movements intact. Oropharynx is pink and moist. NECK: Supple without lymphadenopathy, thyromegaly or JVD. CHEST: Clear to auscultation. HEART: Regular rate and rhythm. ABDOMEN: Soft. No palpable masses. EXTREMITIES: Without cyanosis, clubbing or edema. NEUROLOGIC: The patient is alert and oriented x3. LAB DATA AND TESTS: Laboratory data since the patient stay she has had troponins x5 which were all less than 0.012. Her lipid panel showed LDL of 116, HDL 41. Her A1C was noted at 12.97. D-dimer 456. White count was 10.4, hemoglobin 13.5, PLT count 381,000. No significant left shift on the differential. INR was 1.00. Her sugar initially was 262 nonfasting. BUN 20, creatinine 0.69. Electrolytes were normal. Alkaline phosphatase slightly elevated at 157. Chest x-ray showed continued nonacute chest x-ray. EKG was essentially normal in its appearance. ASSESSMENT: A patient with likely chest wall pain although with her diabetes mellitus being very significant, we will get her an appointment to see Dr. Patterson who her also sees as per patient's request. She will continue her home medications with exceptions we will discontinue her Allopurinol 300 mg a day, amitriptyline 10 mg a day, propranolol 10 mg t.i.d. will be discontinued as these are new medications for her and apparently unnecessary from what I can tell. The patient will also follow up with Dr. Edgar Ledezma in [place] for an endocrinology appointment due to her significantly elevated A1C's and her primary care provider otherwise is Maude N[place]. The patient will also be given a prescription for sublingual Nitro to take on a PRN basis and we will remove her Nitro paste that was placed on in the emergency room.
[2020-04-08] MEDS ORDERED: VITAMIN D2 PO SCH (10:00)
== END 2020-04-06 11:10 | disposition home or self-care (01) ==
LOC: ED 10:35 → MED SURG 14:25
PROVIDERS: ADMIT Family Medicine; ATTEND Family Medicine
DX: R07.9 Chest pain, unspecified (principal); E11.65 Type 2 diabetes mellitus with hyperglycemia; I10 Essential (primary) hypertension; E78.5 Hyperlipidemia, unspecified; R11.0 Nausea; R06.02 Shortness of breath; R51.9 Headache, unspecified; Z79.899 Other long term (current) drug therapy
CPT/HCPCS: 36000; 36415; 71045; 80053; 80061; 82947; 83036; 83721; 83880; 84484; 85025; 85379; 85610; 85730; 93005; 93268; 96374; 96375; 96376; 99285; G0378; J1650; J1817; J1885; J2270; J2405; A9270-GY